=== PATIENT | male | born 1965 | race Caucasian/White ===

== ENCOUNTER 2017-10-03 01:12 | Emergency (ER) | payer BC ==
[~2017-10-03] VITALS: Ht 177.8 cm; Wt 87.7 kg
[2017-10-03 02:03] VITALS: BP 133/79
== END 2017-10-03 02:03 | disposition home or self-care (01) ==
LOC: ED 01:12
DX: S01.81XA Laceration without foreign body of other part of head, initial encounter (principal); W22.8XXA Striking against or struck by other objects, initial encounter; Y92.79 Other farm location as the place of occurrence of the external cause; Z23 Encounter for immunization
CPT/HCPCS: 90715; A4550